=== PATIENT | female | born 1990 | race Caucasian/White ===

== ENCOUNTER 2020-11-02 18:15 | Emergency (ER) | payer OTHER ==
[~2020-11-02] VITALS: Ht 157.5 cm; Wt 90.7 kg
[2020-11-02 18:40] VITALS: BP 111/75
== END 2020-11-03 07:53 | disposition left against medical advice (07) ==
LOC: ER 18:16
DX: R10.2 Pelvic and perineal pain (principal); Z53.21 Procedure and treatment not carried out due to patient leaving prior to being seen by health care provider